=== PATIENT | male | born 1965 | race Caucasian/White ===

== ENCOUNTER 2022-05-13 11:25 | Outpatient (CLI) | payer OTHER ==
[~2022-05-13] VITALS: Ht 149.9 cm; Wt 68.0 kg
== END 2022-05-14 20:23 | disposition home or self-care (01) ==
LOC: MLB 11:25 → EDSTATUS 05-14 08:00 → MLB 05-14 10:53
PROVIDERS: ATTEND Surgery
DX: Z01.818 Encounter for other preprocedural examination (principal); K42.9 Umbilical hernia without obstruction or gangrene; Z20.822 Contact with and (suspected) exposure to COVID-19; I44.4 Left anterior fascicular block
CPT/HCPCS: 71045; 93005

== ENCOUNTER 2022-09-24 06:39 | Day surgery (SDC) | payer OTHER ==
[~2022-09-24] VITALS: Ht 149.9 cm; Wt 68.0 kg
[2022-09-24] MEDS ORDERED: LIDOCAINE 1% 500 MG/50 ML VIAL ONE (07:29)
[2022-09-24] MEDS ORDERED: ceFAZolin 1,000 MG VIAL ONE (07:30)
[2022-09-24] MEDS ORDERED: BUPIVACAINE-MPF/EPI 0.25% 30 ML VIAL INJ ONE (07:30)
[2022-09-24] MEDS ORDERED: fentaNYL citrate 0.05 MG/ML VIAL ONE (07:54)
[2022-09-24] MEDS ORDERED: SUCCINYLCHOLINE CHLORIDE 200 MG/10 ML VIAL IVP ONE (07:54)
[2022-09-24] MEDS ORDERED: PROPOFOL 200 MG/20 ML VIAL IV ONE (07:54)
[2022-09-24] MEDS ORDERED: ROCURONIUM 50 MG/5 ML VIAL IV ONE (08:07)
[2022-09-24] MEDS ORDERED: DEXAMETHASONE 4 MG/ML VIAL ONE (08:08)
[2022-09-24] MEDS ORDERED: ONDANSETRON 4 MG/2 ML VIAL ONE (08:08)
[2022-09-24] MEDS ORDERED: ePHEDrine 50 MG/ML VIAL ONE (08:12)
[2022-09-24] MEDS ORDERED: SUGAMMADEX SODIUM 200 MG/2 ML VIAL IV ONE (08:53)
[2022-09-24] MEDS ORDERED: MEPERIDINE 25 MG/ML SYR ONE (08:55)
[2022-09-24] MEDS ORDERED: ONDANSETRON 4 MG/2 ML VIAL IVP PRN (09:05)
[2022-09-24] MEDS ORDERED: HYDROmorphone 1 MG/ML AMP IVP PRN (09:05)
[2022-09-24] MEDS ORDERED: MEPERIDINE 25 MG/ML SYR IVP PRN (09:05)
[2022-09-24] MEDS ORDERED: diphenhydrAMINE 50 MG/ML VIAL IVP PRN (09:05)
== END 2022-09-24 10:34 | disposition home or self-care (01) ==
LOC: MOR 06:39 → MMU 06:41 → MOR 10:34
PROVIDERS: ATTEND Surgery
DX: K42.0 Umbilical hernia with obstruction, without gangrene (principal); E11.9 Type 2 diabetes mellitus without complications; I25.10 Atherosclerotic heart disease of native coronary artery without angina pectoris; Z98.890 Other specified postprocedural states
CPT/HCPCS: 49594; 71045; 88302; 93005; C1781; J0330; J0690; J1100; J2001; J2175; J2405; J2704; J3010; J3490; J7030